=== PATIENT | female | born 1950 | race Caucasian/White ===

== ENCOUNTER 2018-11-01 10:01 | Outpatient (REF) | payer MEDICARE, SELFPAY ==
[2018-11-01 21:36] LABS: VALPROIC ACID 70.8 ug/mL (50-100)
[2018-11-01 21:47] LABS: Anion Gap 7.5 mmol/L (3-11); BUN 17 mg/dL (7-18); CO2 27.5 mmol/L (21.0-32.0); Calcium 8.4 mg/dL (8.5-10.1); Chloride 106 mmol/L (98-107); Cholesterol 252 mg/dL (50-200); Glucose 90 mg/dL (70-100); HDL Cholesterol 58 mg/dL (40-60); LDL CHOLESTEROL 167 mg/dL (<100); Potassium 4.1 mmol/L (3.5-5.1); Sodium 141 mmol/L (136-145); Triglyceride 145 mg/dL (30-150)
== END 2018-11-01 10:21 ==
LOC: NCHCN 10:01
PROVIDERS: PCP Internal Medicine; Visit Provider Family Medicine
DX: F31.9 Bipolar disorder, unspecified (principal); Z79.899 Other long term (current) drug therapy; Z51.81 Encounter for therapeutic drug level monitoring
CPT/HCPCS: 80048; 80061; 83721; 80164

== ENCOUNTER 2019-01-30 11:43 | Outpatient (REF) | payer MEDICARE, SELFPAY ==
[2019-01-30 21:49] LABS: Magnesium 1.8 mg/dL (1.8-2.4)
[2019-02-02 10:26] LABS: IgA 81 mg/dL (85-499); Interpretation SEE COMMENTS; Tissue Transglutaminase IgA <1.2 U/mL (<4.0)
== END 2019-01-30 12:03 ==
LOC: NCHCN 11:43
PROVIDERS: PCP Internal Medicine; Visit Provider Family Medicine
DX: R19.4 Change in bowel habit (principal); R14.0 Abdominal distension (gaseous); M79.10 Myalgia, unspecified site; Z79.899 Other long term (current) drug therapy
CPT/HCPCS: 82306; 82784; 83516; 83735

== ENCOUNTER 2019-08-14 09:07 | Outpatient (REF) | payer MEDICARE, SELFPAY ==
[2019-08-14 22:21] LABS: Calculated LDL 180 mg/dL; Cholesterol 257 mg/dL (50-200); HDL Cholesterol 53 mg/dL (40-60); Triglyceride 123 mg/dL (30-150)
== END 2019-08-14 09:27 ==
LOC: NCHCN 09:07
PROVIDERS: PCP Family Medicine; Visit Provider Family Medicine
DX: E78.5 Hyperlipidemia, unspecified (principal); K59.09 Other constipation; G43.909 Migraine, unspecified, not intractable, without status migrainosus
CPT/HCPCS: 80061

== ENCOUNTER 2020-04-22 08:58 | Outpatient (REF) | payer MEDICARE, SELFPAY ==
[2020-04-22 21:39] LABS: Abs Immature Grans 0.06 k/cumm (0.0-0.09); Absolute Basophil Count 0.05 k/cumm (0.0-0.2); Absolute Eosinophil Count 0.48 k/cumm (0.0-0.7); Absolute Lymphocyte Count 1.61 k/cumm (1.2-3.4); Absolute Monocyte Count 0.59 k/cumm (0.11-0.7); Absolute Neutrophil Count 4.32 k/cumm (1.2-6.7); Basophils % 0.7; Eosinophils % 6.8; HCT 40.2 % (36.0-46.0); HGB 13.3 g/dL (12.0-15.5); Immature Grans % 0.8 %; Lymphocytes % 22.6; Mean Corp. HGB Concentration 33.1 g/dL (32.0-36.0); Mean Corpuscular Hemoglobin 30.6 pg (27.0-33.0); Mean Corpuscular Volume 92.6 fL (80-95); Mean Platelet Volume 10.3 fL (8.0-11.0); Monocytes % 8.3; Neutrophils % 60.8; Platelet Count 410 x1000/uL (130-400); RBC 4.34 m/cumm (4.00-5.20); RBC Distribution Width 13.2 % (11.7-14.6); White Blood Cell Count 7.11 k/cumm (4.4-10.8)
[2020-04-22 22:03] LABS: ALT 15 U/L (14-59); AST 12 U/L (15-37); Albumin 3.2 g/dL (3.4-5.0); Alkaline Phosphatase 57 U/L (46-116); Anion Gap 9.1 mmol/L (3-11); BUN 11 mg/dL (7-18); Bilirubin, Total 0.4 mg/dL (0.2-1.0); CO2 27.9 mmol/L (21.0-32.0); CREATININE 0.64 mg/dL (0.55-1.02); Calcium 9.3 mg/dL (8.5-10.1); Calculated LDL 182 mg/dL (<100); Chloride 105 mmol/L (98-107); Cholesterol 259 mg/dL (<200); Glucose 98 mg/dL (74-106); HDL Cholesterol 49 mg/dL (40-60); Potassium 4.4 mmol/L (3.5-5.1); Sodium 142 mmol/L (136-145); Total Protein 6.9 g/dL (6.4-8.2); Triglyceride 140 mg/dL (<150)
[2020-04-24 04:56] LABS: Vitamin D 25 Total 44.7 ng/ml (30-100)
== END 2020-04-22 09:18 ==
LOC: NCHCN 08:58
PROVIDERS: PCP Family Medicine; Visit Provider Family Medicine
DX: E78.5 Hyperlipidemia, unspecified (principal); G43.909 Migraine, unspecified, not intractable, without status migrainosus; E55.9 Vitamin D deficiency, unspecified; Z51.81 Encounter for therapeutic drug level monitoring
CPT/HCPCS: 80053; 80061; 82306; 85025

== ENCOUNTER 2020-06-11 21:11 | Outpatient (REF) | payer MEDICARE, SELFPAY | END 2020-06-11 21:31 | LOC: NCHCN 21:11 | PROVIDERS: PCP Family Medicine; Visit Provider Internal Medicine | DX: R30.0 Dysuria (principal) | CPT/HCPCS: 87086 ==

== ENCOUNTER 2020-10-08 15:11 | Outpatient (REF) | payer MEDICARE, SELFPAY | END 2020-10-08 15:31 | LOC: NCHCN 15:11 | PROVIDERS: PCP Family Medicine; Visit Provider Nurse Practitioner Community Health | DX: R30.0 Dysuria (principal) | CPT/HCPCS: 87086 ==

== ENCOUNTER 2020-11-11 16:48 | Outpatient (REF) | payer MEDICARE, SELFPAY ==
[2020-11-11 13:25] LABS: Abs Immature Grans 0.03 10^3/uL (0.0-0.06); Absolute Basophil Count 0.09 10^3/uL (0.0-0.2); Absolute Eosinophil Count 0.12 10^3/uL (0.0-0.7); Absolute Lymphocyte Count 1.69 10^3/uL (1.2-3.4); Absolute Monocyte Count 0.48 10^3/uL (0.1-0.8); Absolute Neutrophil Count 2.61 10^3/uL (1.2-6.7); Basophils % 1.8; Eosinophils % 2.4; HCT 41.3 % (36.0-46.0); HGB 13.6 g/dL (11.2-15.7); Immature Grans % 0.6; Lymphocytes % 33.7; MCH 31.1 pg (27.0-33.0); MCHC 32.9 % (32.0-36.0); MCV 94.3 fL (80-95); MPV 10.4 fL (8.0-11.0); Monocytes % 9.6; Neutrophils % 51.9; Nucleated RBC 0 %; Platelet Count 266 10^3/uL (130-400); RBC 4.38 10^6/uL (3.93-5.22); RDW 13.4 % (11.7-14.6); RDW-SD 47.2 fL; WBC 5.02 10^3/uL (4.4-10.8)
[2020-11-11 14:27] LABS: ALT 28 U/L (14-59); AST 13 U/L (15-37); Albumin 3.3 g/dL (3.4-5.0); Alkaline Phosphatase 43 U/L (46-116); Anion Gap 5.2 mmol/L (3-11); BUN 19 mg/dL (7-18); Bilirubin, Total 0.4 mg/dL (0.2-1.0); CO2 29.8 mmol/L (21.0-32.0); CREATININE 0.6 mg/dL (0.55-1.02); Calculated LDL 187 mg/dL (<100); Chloride 106 mmol/L (98-107); Cholesterol 267 mg/dL (<200); Glucose 87 mg/dL (74-106); HDL Cholesterol 57 mg/dL (40-60); Potassium 4.1 mmol/L (3.5-5.1); Sodium 141 mmol/L (136-145); Total Protein 6.7 g/dL (6.4-8.2); Triglyceride 117 mg/dL (<150)
== END 2020-11-11 16:49 | disposition home or self-care (01) ==
LOC: NCHCN 16:48
PROVIDERS: PCP Family Medicine; Visit Provider Family Medicine
DX: E78.5 Hyperlipidemia, unspecified (principal); I73.00 Raynaud's syndrome without gangrene
CPT/HCPCS: 80053; 80061; 85025

== ENCOUNTER 2020-11-21 06:46 | Day surgery (SDC) | payer MEDICARE, SELFPAY ==
[2020-11-21 07:04] VITALS: BP 120/79; PULSE 72; RESP 16; TEMP 36.2; O2SAT 98
[2020-11-21] MEDS: Tropicam./Phenyleph. (1/2.5%) 5 ML BTL ×3 (07:21→07:34)
[2020-11-21] MEDS: Lidocaine 1% Pres-Free 5 ML VIAL (07:50)
[2020-11-21] MEDS: Balanced Salt Soln.-PLUS 500 ML BAG (07:51)
[2020-11-21] MEDS: Povidone-Iodine Ophth 30 ML BTL (07:51)
[2020-11-21] MEDS: Lidocaine 2% Jelly 6 ML SYR (07:52)
[2020-11-21] MEDS: Duovisc Viscoelastic System EACH 1 EACH (07:53)
[2020-11-21] MEDS: Tetracaine 0.5% 4 ML BTL (07:55)
[2020-11-21] MEDS: Trypan Blue 0.06% 0.5 ML SYR (08:03)
--- NOTE | 2020-11-21 08:16 | W.PM.DSUDISC ---
Discharge Plan Disposition Patient Disposition: HOME Condition: Good Discharge Details Attending Provider: Jonathan Weathers Primary Care Provider: Valentine Akbar Home Meds and New Rx's Prescriptions: No Action divalproex 250 MG tablet,delayed release (DR/EC) 250 mg PO BID RF: 0 sumatriptan succinate [Imitrex] 50 MG tablet 50 mg PO PRN PRNRF: 0 omeprazole 20 MG capsule,delayed release(DR/EC) 20 mg PO BID RF: 0 lorazepam 1 MG tablet 1 mg PO .QAM PRN RF: 0 nitrofurantoin monohyd/m-cryst [Macrobid] 100 MG capsule 100 mg PO DAILY RF: 0 duloxetine [Cymbalta] 60 MG capsule,delayed release(DR/EC) 60 mg PO DAILY RF: 0 cholecalciferol (vitamin D3) 1,000 UNITS tablet 1,000 unit PO DAILY RF: 0 estradiol [Vagifem] 10 MCG tablet 10 mcg VG USEASDIRECTD RF: 0 celecoxib 200 mg capsule 200 mg PO DAILY RF: 0 Prevacid 15 mg Susp,Delayed Release For Recon PO DAILY RF: 0 Emgality Syringe 120 mg/mL Syringe SUBCUT QMONTH RF: 0 Discharge Instructions Stand Alone Forms: Post-op Topical Cataract Discharge Orders Discharge Orders: Discharge Order (Routine); Ordered 11/21/20 Ordered By: Jonathan Weathers DS: Diagnosis Discharge Diagnosis (1) Combined form of age-related cataract, right eye: Status: Resolved (2) Posterior subcapsular age-related cataract, right eye: Status: Resolved
--- NOTE | 2020-11-21 08:17 | W.PM.OP ---
Date of service: 11/21/20 Time of Service: 08:18 Operative Note Operative Note DATE OF PROCEDURE: 11/21/20 PRE-OP DIAGNOSIS: Nuclear/cortical/posterior subcapsular cataract, right eye Poor red reflex, right eye POST-OP DIAGNOSIS: same PROCEDURE: Cataract extraction using phacoemulsification with intraocular lens implantation, right eye, using capsular staining with Vision Blue SURGEON: Jonathan Weathers ANESTHESIA: MAC (with local sub-tenon's anesthetic injection) PATHOLOGY: none sent COMPLICATIONS: None Patient was transported to: same day Patient's condition: stable Implants: [employer] / [employer] Tecnis [id number] Indications: Progressive visual loss due to cataract, right eye Procedure Description: CATARACT SURGERY OPERATIVE REPORT PREOPERATIVE DIAGNOSIS: 1. Nuclear/cortical/posterior subcapsular cataract, right eye 2. Poor red reflex secondary to #1 POSTOPERATIVE DIAGNOSIS: Same OPERATION: 1. Cataract extraction using phacoemulsification with posterior chamber intraocular lens implant, right eye. 2. Capsular staining with Vision Blue IOL: IOL Thermostat Repairer/Model: [employer] / [place] Tecnis [id number] IOL Power: + 22.5 diopters IOL Serial Number: [id number] Optic Diameter: 6.0mm Haptic/Overall Diameter: 13.0mm PHACO INFO: [employer]is[employer] T[employer] Societyurion Vision System with OZil and [employer] Cumulative Dispersed Energy (CDE): 9.87 seconds SURGEON: Jonathan Weathers MD, JOSIE ANESTHESIA: Monitored Anesthesia Care (MAC), with local sub-tenon's anesthetic infiltration COMPLICATIONS: None SPECIMENS: None INDICATIONS FOR PROCEDURE: The patient is a 70-year-old lady with history of diminished visual acuity in her right eye. She is noted to have a significant nuclear cortical and posterior subcapsular cataract of the right eye. The option of cataract surgery was offered to the patient and she wished to proceed. PROCEDURE: The correct surgical eye was identified and marked as the right eye and the pupil was dilated in the preoperative area using mydriatics and cycloplegics. The dilated pupil size was 6.5 mm. Oral sedation was administered in the form of an Imprimis MKO Melt (midazolam 3mg/ketamine 25mg/ondansetron 2mg). The patient was brought to the operating room where cardiopulmonary monitoring was instituted and surgical time-out was performed, confirming the correct operative eye and IOL power. Topical anesthesia was administered and ophthalmic povidone-iodine 5% was instilled into the conjunctival fornices. Lidocaine gel was applied to the cornea and the john-ocular area was prepped with Betadine 10% solution and draped in the usual sterile fashion for intraocular surgery, including an aperture drape. A Tegaderm transparent film dressing was cut in half and used to cover the lashes and lid margins. Care was taken to sequester the lashes and lid margins under the Tegaderm dressing. A lid speculum was placed between the lids of the operative eye and the Madeline-Yury operating microscope was maneuvered into position. Gia scissors were then used to make a conjunctival buttonhole approximately 6mm posterior to the limbus in the inferonasal quadrant. Blunt dissection was carried out to expose bare sclera, and a blunt-tipped sub-tenon?s anesthesia cannula was introduced and passed posteriorly along the globe where non-preserved plain lidocaine was injected into posterior sub-Tenon?s space. A sideport knife was used to make a paracentesis port inferotemporally. Intraocular phenylephrine/lidocaine was injected into the anterior chamber. Air was injected into the anterior chamber, followed by Vision Blue, which was painted over the anterior capsule and then irrigated out with BSS. The anterior chamber was filled with viscoelastic. A 2.4mm keratome knife was used to create a half-thickness groove at the limbus and then to construct a three-plane near-clear corneal tunnel extending 2.0mm into clear cornea superiortemporally. A flap was raised on the anterior capsule and capsulorhexis forceps were used to complete a continuous curvilinear capsulorhexis of 5.0 mm. Balanced salt solution was then used to perform cortical cleaving hydrodissection and nuclear hydrodelineation until the lens could be freely rotated within the capsular bag. The lens nucleus was then disassembled and removed within the capsular bag and iris plane using phacoemulsification. Residual cortical material was removed using the I/A handpiece. The posterior capsule was carefully polished to remove as much residual lens epithelial cells as safely possible. The capsular bag was then inflated and the anterior chamber deepened with viscoelastic. The lens implant described above was inserted into the capsular bag using the AL [place] Injector. A Kuglen hook was used to dial the IOL into position. Residual viscoelastic was then removed first from posterior to the IOL, then from the anterior chamber using the I/A handpiece. The lens implant was noted to center nicely within the capsular bag. The incisions were stromally hydrated, and the anterior chamber was reformed using BSS. Then 0.5cc of moxifloxacin 1.0mg/ml were injected into the capsular bag and anterior chamber. The incisions were checked with a Weck spear and found to be secure. Several drops of ophthalmic povidone-iodine 5% were then applied to the eye followed by two drops of Imprimis combination prednisolone/moxifloxacin/nepafenac solution. The drapes were removed and a clear plastic protective eye shield was placed over the eye. The patient was then returned to [facility] in stable condition.
[2020-11-21 08:45] VITALS: BP 119/72; PULSE 84; RESP 16; TEMP 36.7; O2SAT 99
== END 2020-11-21 08:50 | disposition home or self-care (01) ==
PROVIDERS: PCP Family Medicine; Visit Provider Ophthalmology
PROC: (CPT 66982; principal; 2020-11-21 07:30)
DX: H25.11 Age-related nuclear cataract, right eye (principal); H25.041 Posterior subcapsular polar age-related cataract, right eye; H25.011 Cortical age-related cataract, right eye; H35.89 Other specified retinal disorders; K21.9 Gastro-esophageal reflux disease without esophagitis
CPT/HCPCS: 66982; V2632

== ENCOUNTER 2021-03-03 14:42 | Outpatient (REF) | payer MEDICARE, SELFPAY ==
[2021-03-03 15:38] LABS: ALT 19 U/L (14-59); AST 14 U/L (15-37); Albumin 3.3 g/dL (3.4-5.0); Alkaline Phosphatase 45 U/L (46-116); Anion Gap 8.3 mmol/L (3-11); Bilirubin, Total 0.3 mg/dL (0.2-1.0); CO2 29.7 mmol/L (21.0-32.0); CREATININE 0.6 mg/dL (0.55-1.02); Calcium 8.6 mg/dL (8.5-10.1); Calculated LDL 139 mg/dL (<100); Chloride 106 mmol/L (98-107); Cholesterol 209 mg/dL (<200); Glucose 86 mg/dL (74-106); HDL Cholesterol 58 mg/dL (40-60); Potassium 4.4 mmol/L (3.5-5.1); Sodium 144 mmol/L (136-145); Total Protein 6.4 g/dL (6.4-8.2); Triglyceride 64 mg/dL (<150)
[2021-03-03 15:49] LABS: BUN 21 mg/dL (7-18)
== END 2021-03-03 14:43 | disposition home or self-care (01) ==
LOC: NCHCN 14:42
PROVIDERS: PCP Family Medicine; Visit Provider Family Medicine
DX: E78.5 Hyperlipidemia, unspecified (principal)
CPT/HCPCS: 80053; 80061

== ENCOUNTER 2021-03-10 12:30 | Outpatient (REF) | payer MEDICARE, SELFPAY ==
[2021-03-10 22:15] LABS: TSH (W/Ref FT4) 1.28 uIU/mL (0.36-3.74); Vitamin B12 440 pg/mL (193-986)
== END 2021-03-10 12:31 | disposition home or self-care (01) ==
LOC: NCHCN 12:30
PROVIDERS: PCP Family Medicine; Visit Provider Family Medicine
DX: E78.5 Hyperlipidemia, unspecified (principal); R19.7 Diarrhea, unspecified; R53.83 Other fatigue; N95.2 Postmenopausal atrophic vaginitis; K22.70 Barrett's esophagus without dysplasia; Z79.899 Other long term (current) drug therapy
CPT/HCPCS: 82607; 84443

== ENCOUNTER 2021-06-23 17:53 | Outpatient (REF) | payer MEDICARE, SELFPAY ==
[2021-06-25 14:45] LABS: Chlamydia Result Negative (Negative); GC Result Negative (Negative)
== END 2021-06-23 17:54 | disposition home or self-care (01) ==
LOC: NCHCN 17:53
PROVIDERS: PCP Family Medicine; Visit Provider Nurse Practitioner Family
DX: Z11.3 Encounter for screening for infections with a predominantly sexual mode of transmission (principal)
CPT/HCPCS: 87491; 87591

== ENCOUNTER 2021-08-17 15:29 | Outpatient (REF) | payer MEDICARE, SELFPAY | END 2021-08-17 15:30 | disposition home or self-care (01) | LOC: NCHCN 15:29 | PROVIDERS: PCP Family Medicine; Visit Provider Nurse Practitioner Family | DX: R39.89 Other symptoms and signs involving the genitourinary system (principal) | CPT/HCPCS: 87077; 87086; 87186 ==